=== PATIENT | female | born 1990 | race African-American/Black ===

== ENCOUNTER 2025-01-28 10:54 | Emergency (ER) | payer OTHER ==
[~2025-01-28] VITALS: Ht 175.3 cm; Wt 68.0 kg
[2025-01-28 10:58] VITALS: TEMP 37.2; O2SAT 100
[2025-01-28 11:46] LABS: BASOPHILS % 0.3 % (0.0-2.0); EOSINOPHILS % 1.4 % (0.0-5.0); HEMATOCRIT. 37.9 % (36.0-48.0); HEMOGLOBIN. 12.0 g/dL (12.0-16.0); LYMPHOCYTES % 27.2 % (20.0-50.0); MEAN PLATELET VOLUME 9.0 fl (7.4-10.4); MONOCYTES % 8.3 % (2.0-8.0); NEUTROPHILS % 62.8 % (40.0-76.0); PLATELET 289 x1000/uL (130-400); RED BLOOD CELL COUNT 4.57 mill/uL (4.2-5.4); RED CELL DISTRIBUTION WIDTH 12.9 % (11.6-14.6)
[2025-01-28 11:58] LABS: CREATININE 0.8 mg/dL (0.6-1.0); UREA NITROGEN BLOOD 6 mg/dL (9-23)
[2025-01-28 11:59] LABS: TROPONIN I HIGH SENSITIVITY < 4 ng/L (3.0-34)
[2025-01-28 12:00] LABS: ASPARTATE AMINOTRANSFERASE 24 IU/L (<34); BILIRUBIN DIRECT 0.3 mg/dL (<=3.0)
[2025-01-28 12:01] LABS: BILIRUBIN TOTAL 0.9 mg/dL (0.1-1.0); PROTEIN TOTAL 7.2 g/dL (6.0-8.3)
[2025-01-28] MEDS: ACETAMINOPHEN 325MG TABLET PO ONE (13:00)
[2025-01-28 14:06] VITALS: BP 138/97; PULSE 70; RESP 16; O2SAT 99
[2025-01-28 14:47] LABS: TROPONIN I HIGH SENSITIVITY 4 ng/L (3.0-34)
== END 2025-01-28 14:08 | disposition home or self-care (01) ==
LOC: ER 10:54 → CANBEDREQ 16:55
DX: M94.0 Chondrocostal junction syndrome [Tietze] (principal); I10 Essential (primary) hypertension
CPT/HCPCS: 36415; 71045; 80048; 80076; 83735; 84484; 85025; 93005; 99285; A4606